=== PATIENT | female | born 1940 | race Caucasian/White ===

== ENCOUNTER 2019-04-13 22:26 | Emergency (ER) | payer OTHER ==
[2019-04-13 23:09] VITALS: PULSE 18; TEMP 98; BMI 24.7
--- NOTE | 2019-04-13 23:31 | PDOC ---
History of Present Illness - General Chief Complaint: Shortness of Breath Stated Complaint: DIFF BREATHING - History of Present Illness Initial Comments: The pt is a 78F w/ a history of HTN, HLD, and cataracts who presents for evaluation of 2 days of body achy and 1 day of shortness of breath. The pt reports that she has been dancing more the last few days and has had body aches. She reports sudden onset shortness of breath while brushing her teeth two hours prior to arrival. She states that it has since improved/almost resolved. She has had similar symptoms before, but not this bad. She endorses 2 sick contacts (kids) She denies fevers/chills, chest pain, abdominal pain, N/V/C/D, dysuria, hematuria, or changes in sensation. 04/14/19 00:51 Past History - Past Medical History Allergies/Adverse Reactions: Allergies Allergy/AdvReac Type Severity Reaction Status Date / Time No Known Allergies Allergy Verified 02/11/16 16:54 Home Medications: Ambulatory Orders Atorvastatin Ca [Lipitor] 20 mg PO DAILY 02/11/16 Bimatoprost [Lumigan] 1 drop IO DAILY 02/11/16 Brimonidine Tartrate [Alphagan P 0.1% -] 1 drop OU BID 02/11/16 Timolol 0.5% [Timoptic 0.5%] 1 drop OU DAILY 02/11/16 Atorvastatin Ca [Lipitor] 20 mg PO DAILY tablet 02/14/16 Brimonidine Tartrate [Alphagan P 0.1% -] 1 drop OU BID drops 02/14/16 Dorzolamide HCl [Trusopt 2% -] 1 drop OU BID drops 02/14/16 Anemia: No Asthma: No Cancer: No Cardiac Disorders: No COPD: No CHF: No Diabetes: Yes HTN: Yes - Psycho Social/Smoking Cessation Hx Smoking History: Never smoked Have you smoked in the past 12 months: No Information on smoking cessation initiated: No Hx Alcohol Use: No Drug/Substance Use Hx: No Substance Use Type: None Review of Systems - Review of Systems Able to Perform ROS?: Yes Comments:: GENERAL/CONSTITUTIONAL: No fever or chills. No weakness HEAD, EYES, EARS, NOSE AND THROAT: No change in vision. No change in hearing. No sore throat CARDIOVASCULAR: No chest pain RESPIRATORY: Denies cough, hemoptysis GASTROINTESTINAL: No nausea, vomiting, diarrhea or constipation GENITOURINARY: No dysuria, frequency, or change in urination MUSCULOSKELETAL: +generalized myalgias SKIN: No rash NEUROLOGIC: No headache, vertigo, loss of consciousness, or change in strength/ sensation ENDOCRINE: No increased thirst. No abnormal weight change HEMATOLOGIC/LYMPHATIC: No anemia, easy bleeding, or history of blood clots ALLERGIC/IMMUNOLOGIC: No hives or skin allergy 04/13/19 23:31 Is the patient limited Tongan proficient: No *Physical Exam - Vital Signs Last Vital Signs Temp Pulse Resp BP Pulse Ox 98 F 18 L 75 H 191/85 H 100 04/13/19 23:06 04/13/19 23:06 04/13/19 23:06 04/13/19 23:06 04/13/19 23:06 - Physical Exam GENERAL: Awake, alert, and oriented to person/place/time, in no acute distress HEAD: No signs of trauma, normocephalic, atraumatic EYES: PERRLA, EOMI, sclera anicteric, conjunctiva clear ENT: Hearing grossly normal, nares patent, oropharynx clear without exudates. Moist mucosa LUNGS: No distress, speaks in full sentences, clear to auscultation bilaterally HEART: Regular rate and rhythm, normal S1 and S2, no murmurs appreciated, peripheral pulses normal and equal bilaterally ABDOMEN: Soft, nontender, normoactive bowel sounds. No guarding, no rebound EXTREMITIES: Normal inspection, Normal range of motion, no edema. No clubbing or cyanosis NEUROLOGICAL: Cranial nerves II through XII grossly intact. Normal speech, no focal sensorimotor deficits SKIN: Warm, Dry 04/13/19 23:31 ED Treatment Course - LABORATORY CBC & Chemistry Diagram: 04/14/19 00:50 04/14/19 00:50 Medical Decision Making - Medical Decision Making The pt is a 78F w/ a history of HTN, HLD, and cataracts who presents for evaluation of 2 days of body achy and 1 day of shortness of breath. Ddx: influenza, MSK pain, PNA, consider ACS/rib fx ED Course Labs sent ECG CXR Influenza neg CXR interpreted by ED staff, no rib fx, PNA, or PNX No leukocytosis No anemia 04/14/19 01:12 ECG w/ NSR; HR 94; QTc 452; no axis deviation; no TWI, no DENNIS Trop I neg UA pending Dispo pending UA 04/14/19 01:51 UA/Ucx sent 04/14/19 02:00 Pt signed out to Dr[address] Cabrera 04/14/19 02:04 Discharge - Discharge Information Problems reviewed: Yes Clinical Impression/Diagnosis: Musculoskeletal pain Condition: Improved - Admission No - Follow up/Referral Referrals: Kadeem Dudley MD [Primary Care Provider] - - Patient Discharge Instructions Patient Printed Discharge Instructions: DI for Musculoskeletal Pain Additional Instructions: You were seen in the Emergency Department for evaluation of musculoskeletal pain. Your labs and imaging were unremarkable. Review the handout provided at discharge. Follow up with your primary care physician within the next week For pain you may take Tylenol 650mg every 6 hours and Ibuprofen 600mg every 6-8 hours, alternating them each time. Return to the Emergency Department if you develop fevers, chest pain, trouble breathing, worsening pain, change in sensation, worsening symptoms, or any new/ concerning symptoms. - Post Discharge Activity
[2019-04-14] MEDS ORDERED: ACETAMINOPHEN 325 MG TABLET (FP) PO ONE (00:10)
--- NOTE | 2019-04-14 00:18 | PDOC ---
Documentation entered by Kaleigh Mcpherson SCRIBE, acting as scribe for Huong Higgins DO. Huong Higgins DO: This documentation has been prepared by the amariibmary, Kaleigh Mcpherson SCRIBE, under my direction and personally reviewed by me in its entirety. I confirm that the documentation accurately reflects all work, treatment, procedures, and medical decision making performed by me. Attending Attestation - Resident Resident Name: Dakotah Tran - ED Attending Attestation I have performed the following: I have examined & evaluated the patient, The case was reviewed & discussed with the resident, I agree w/resident's findings & plan, Exceptions are as noted - HPI HPI: 04/14/19 00:26 The patient is a 75 year old female, with a significant past medical history of HTN, hypercholesterolemia, glaucoma, and cataracts, who presents to the emergency department via EMS, with SOB. Pt also complains of body aches due to dancing recently. As per patient, her symptoms have since resolved prior to arriving to the ED. She denies recent fevers, chills, headache or dizziness. She denies recent nausea, vomiting, diarrhea or constipation. She denies recent dysuria, frequency, urgency or hematuria. She denies recent chest pain. - Physicial Exam PE: 04/14/19 00:18 Gen: aaox3, uncomfortable heart: +s1s2 reg lungs: cta b/l, diffuse chest wall ttp, no deformities palpated abd: soft, nt/nd +bs ext: no c/c/e - Medical Decision Making 04/14/19 00:16 I, Dr. Huong Higgins DO, attest that this document has been prepared under my direction and personally reviewed by me in its entirety. I further attest, that it accurately reflects all work, treatment, procedures and medical decision -making performed by me. a/p: 78yo female with sob earlier today which has since resolved -states her whole body is sore from dancing more recently -pt denies cough, f/c, rhinorrhea, sore throat -no abd pain, no n/v/d -no dysuria -pt with diffuse ttp over ribs, paraspinal muscles, anterior chest wall -will send labs, ekg, cxr -will give tylenol for pain -will monitor and reassess 04/14/19 00:49 flu neg 04/14/19 01:12 cxr clear no elevated wbc 04/14/19 02:05 pt pending ua feels better after tylenol states she has been salsa dancing recently and her body feels sore 04/14/19 02:05 pt signed out to the ED night staff pending ua and re-eval Heart Score/ECG Review - ECG Intrepretation Comment:: 04/14/19 01:12 sinus at 94, nl axis, nl interval, no acute st/t wave findings
[2019-04-14] MEDS ORDERED: ACETAMINOPHEN 325 MG TABLET (FP) ONE (00:47)
[2019-04-14 00:57] LABS: BASO % 0.4 % (0-2.0); EOS % 2.1 % (0-4.5); HEMATOCRIT 44.1 % (32.4-45.2); HEMOGLOBIN 14.6 GM/dL (10.7-15.3); LYMPH % 24.3 % (8-40); MCHC 33.1 g/dl (32.0-36.0); MEAN CELL VOLUME 96.8 fl (80-96); MEAN PLT VOLUME 11.5 fl (7.5-11.1); MONO % 8.7 % (3.8-10.2); NEUT % 64.5 % (42.8-82.8); PLATELET COUNT 209 K/MM3 (134-434); RBC 4.56 M/mm3 (3.60-5.2); RDW 13.5 % (11.6-15.6); WHITE BLOOD COUNT 8.9 K/mm3 (4.0-10.0)
[2019-04-14 01:34] LABS: ALBUMIN 3.9 g/dl (3.4-5.0); BILIRUBIN,TOTAL 0.3 mg/dL (0.2-1); BLOOD UREA NITROGEN 17.4 mg/dL (7-18); CALCIUM 9.6 mg/dL (8.5-10.1); CREATININE 0.8 mg/dL (0.55-1.3); POTASSIUM 4.8 mmol/L (3.5-5.1)
[2019-04-14 02:05] LABS: PH,URINE 5.5 (5.0-8.0); URINE APPEARANCE CLEAR; URINE BILIRUBIN NEGATIVE (NEGATIVE); URINE COLOR YELLOW; URINE GLUCOSE (UA) NEGATIVE (NEGATIVE); URINE KETONE NEGATIVE (NEGATIVE); URINE LEUK ESTERASE NEGATIVE (NEGATIVE); URINE NITRITE NEGATIVE (NEGATIVE); URINE PROTEIN NEGATIVE (NEGATIVE); URINE UROBILINOGEN 0.2 mg/dL (0.2-1.0)
--- NOTE | 2019-04-14 02:26 | PDOC ---
*Physical Exam - Vital Signs Last Vital Signs Temp Pulse Resp BP Pulse Ox 98 F 18 L 75 H 158/71 100 04/13/19 23:06 04/13/19 23:06 04/13/19 23:06 04/14/19 00:55 04/13/19 23:06 ED Treatment Course - LABORATORY CBC & Chemistry Diagram: 04/14/19 00:50 04/14/19 00:50 - ADDITIONAL ORDERS Additional order review: Laboratory Results 04/14/19 04/14/19 04/14/19 02:00 00:50 00:50 Sodium 141 Potassium 4.8 Chloride 105 Carbon Dioxide 30 Anion Gap 6 L BUN 17.4 Creatinine 0.8 Est GFR (CKD-EPI)AfAm 83.00 Est GFR (CKD-EPI)NonAf 71.61 Random Glucose 130 H Calcium 9.6 Total Bilirubin 0.3 AST 36 ALT 28 Alkaline Phosphatase 113 Troponin I < 0.02 Total Protein 9.0 H Albumin 3.9 Urine Color Yellow Urine Appearance Clear Urine pH 5.5 Ur Specific [place] 1.010 Urine Protein Negative Urine Glucose (UA) Negative Urine Ketones Negative Urine Blood Negative Urine Nitrite Negative Urine Bilirubin Negative Urine Urobilinogen 0.2 Ur Leukocyte Esterase Negative 04/14/19 00:50 RBC 4.56 MCV 96.8 H MCHC 33.1 RDW 13.5 MPV 11.5 H D Neutrophils % 64.5 Lymphocytes % 24.3 D Monocytes % 8.7 Eosinophils % 2.1 Basophils % 0.4 - Medications Given in the ED: ED Medications Discontinued Medications Generic Name Dose Route Start Last Admin Trade Name Freq PRN Reason Stop Dose Admin Acetaminophen 975 mg 04/14/19 00:10 04/14/19 00:53 Tylenol - PO 04/14/19 00:11 975 mg ONCE ONE Administration Medical Decision Making - Medical Decision Making 04/14/19 02:24 Signed out from day team The pt is a 78F w/ a history of HTN, HLD, and cataracts who presents for evaluation of 2 days of body achy and 1 day of shortness of breath. Ddx: influenza, MSK pain, PNA, consider ACS/rib fx labs unremarkable will followup on UA 04/14/19 02:25 Ua unremarkable will DC home with pcp f/u Discharge - Discharge Information Problems reviewed: Yes Clinical Impression/Diagnosis: Musculoskeletal pain Condition: Improved Disposition: HOME - Follow up/Referral Referrals: Kadeem Dudley MD [Primary Care Provider] - - Patient Discharge Instructions Patient Printed Discharge Instructions: DI for Musculoskeletal Pain Additional Instructions: You were seen in the Emergency Department for evaluation of musculoskeletal pain. Your labs and imaging were unremarkable. Review the handout provided at discharge. Follow up with your primary care physician within the next week For pain you may take Tylenol 650mg every 6 hours and Ibuprofen 600mg every 6-8 hours, alternating them each time. Return to the Emergency Department if you develop fevers, chest pain, trouble breathing, worsening pain, change in sensation, worsening symptoms, or any new/ concerning symptoms. - Post Discharge Activity
[2019-04-14 02:42] VITALS: BP 116/54
--- NOTE | 2019-04-14 13:57 | EKG ---
Test Reason : Blood Pressure : / mmHG Vent. Rate : 094 BPM Atrial Rate : 094 BPM P-R Int : 152 ms QRS Dur : 082 ms QT Int : 362 ms P-R-T Axes : 068 064 078 degrees QTc Int : 452 ms NORMAL SINUS RHYTHM NORMAL ECG WHEN COMPARED WITH ECG OF 12-FEB-2016 09:23, NO SIGNIFICANT CHANGE WAS FOUND Confirmed by EPHRAIM ALLEN MD ([id number]) on 04/14/2019 1:57:01 PM Referred By: Confirmed By:EPHRAIM ALLEN MD
== END 2019-04-14 02:42 | disposition home or self-care (01) ==
LOC: JER 22:26
DX: M79.18 Myalgia, other site (principal); I10 Essential (primary) hypertension; E78.5 Hyperlipidemia, unspecified; H40.9 Unspecified glaucoma
CPT/HCPCS: 36415; 71046-TC-FY; 80053; 81003; 84484; 85025; 87086; 87804; 93005; 93010; 99283-25

== ENCOUNTER 2020-10-06 15:35 | Emergency (ER) | payer OTHER ==
[2020-10-06 15:54] VITALS: TEMP 98.9; BMI 23.0
[2020-10-06] MEDS ORDERED: FLUORESCEIN NA 1 EA STRIP ONE (16:46)
[2020-10-06 17:12] VITALS: BP 160/80; PULSE 90
== END 2020-10-06 17:42 | disposition home or self-care (01) ==
LOC: JERFT 15:35
DX: B02.9 Zoster without complications (principal)
CPT/HCPCS: 99283-25

== ENCOUNTER 2020-10-08 10:37 | Emergency (ER) | payer OTHER ==
[2020-10-08 10:46] VITALS: BMI 23.0
[2020-10-08] MEDS ORDERED: predniSONE 20 MG TABLET (UD) PO ONE (12:09)
[2020-10-08] MEDS ORDERED: ACYCLOVIR INJECTION 600 MG in DEXTROSE 5%-WATER - 100 ML IVPB ONE (12:10)
[2020-10-08] MEDS ORDERED: predniSONE 20 MG TABLET (UD) ONE (12:33)
[2020-10-08 13:20] LABS: BASO % 0.5 % (0-2.0); EOS % 2.8 % (0-4.5); HEMATOCRIT 45.9 % (32.4-45.2); HEMOGLOBIN 15.1 GM/dL (10.7-15.3); LYMPH % 31.7 % (8-40); MCH 31.7 pg (25.7-33.7); MEAN PLT VOLUME 11.2 fl (7.5-11.1); MONO % 19.5 % (3.8-10.2); NEUT % 45.5 % (42.8-82.8); PLATELET COUNT 164 10^3/uL (134-434); RBC 4.78 M/mm3 (3.60-5.2); RDW 13.2 % (11.6-15.6)
[2020-10-08 13:45] LABS: ALBUMIN 3.8 g/dl (3.4-5.0)
[2020-10-08 13:46] LABS: BLOOD UREA NITROGEN 10.9 mg/dL (7-18)
[2020-10-08 13:47] LABS: CALCIUM 9.6 mg/dL (8.5-10.1)
[2020-10-08 13:49] LABS: CREATININE 0.6 mg/dL (0.55-1.3)
[2020-10-08 13:50] LABS: BILIRUBIN,TOTAL 0.2 mg/dL (0.2-1); TOT PROT 8.8 g/dl (6.4-8.2)
[2020-10-08] MEDS ORDERED: amLODIPine BESYLATE 5 MG TABLET (FP) PO ONE (14:22)
[2020-10-08] MEDS ORDERED: amLODIPine BESYLATE 5 MG TABLET (FP) ONE (14:23)
[2020-10-08 15:07] VITALS: BP 164/70; PULSE 88; TEMP 98.1
== END 2020-10-08 15:04 | disposition home or self-care (01) ==
LOC: JER 10:37
DX: B02.39 Other herpes zoster eye disease (principal)
CPT/HCPCS: 36415; 80053; 85025; 99284-25

== ENCOUNTER 2020-12-18 18:08 | Observation (INO) | payer OTHER ==
[2020-12-18] MEDS ORDERED: ASPIRIN 81 MG CHEWABLE TABLETS PO ONE (20:46)
[2020-12-18] MEDS ORDERED: NITROGLYCERIN 2% OINTMENT - 1GM PACKET TD ONE ×2 (20:47→20:56)
[2020-12-18] MEDS ORDERED: ASPIRIN 81 MG CHEWABLE TABLETS ONE (20:56)
[2020-12-18 21:11] LABS: BASO % 0.3 % (0-2.0); EOS % 3.6 % (0-4.5); HEMATOCRIT 46.3 % (32.4-45.2); HEMOGLOBIN 15.8 GM/dL (10.7-15.3); LYMPH % 32.5 % (8-40); MCH 32.7 pg (25.7-33.7); MCHC 34.2 g/dl (32.0-36.0); MEAN CELL VOLUME 95.8 fl (80-96); MEAN PLT VOLUME 10.8 fl (7.5-11.1); MONO % 8.7 % (3.8-10.2); NEUT % 54.9 % (42.8-82.8); PLATELET COUNT 199 10^3/uL (134-434); RBC 4.83 M/mm3 (3.60-5.2); RDW 14.1 % (11.6-15.6); WHITE BLOOD COUNT 8.9 K/mm3 (4.0-10.0)
[2020-12-18 21:44] LABS: CHLORIDE 103 mmol/L (98-107); SODIUM 140 mmol/L (136-145)
[2020-12-18 21:46] LABS: CALCIUM 9.8 mg/dL (8.5-10.1)
[2020-12-18 21:47] LABS: ANION GAP 6 MMOL/L (8-16); BLOOD UREA NITROGEN 10.5 mg/dL (7-18); CO2 32 mmol/L (21-32); GLUCOSE,RANDOM 100 mg/dL (74-106)
[2020-12-18 21:49] LABS: SGPT/ALT 26 U/L (13-61)
[2020-12-18 21:50] LABS: SGOT/AST 27 U/L (15-37)
[2020-12-18 21:51] LABS: BILIRUBIN,TOTAL 0.3 mg/dL (0.2-1)
[2020-12-18 21:52] LABS: ALK PHOS 124 U/L (45-117); CREATININE 0.6 mg/dL (0.55-1.3); TOT PROT 8.7 g/dl (6.4-8.2)
[2020-12-19 03:19] VITALS: BMI 25.1
[2020-12-19 08:38] LABS: URINE APPEARANCE CLEAR; URINE BILIRUBIN NEGATIVE (NEGATIVE); URINE COLOR YELLOW; URINE GLUCOSE (UA) NEGATIVE (NEGATIVE); URINE KETONE NEGATIVE (NEGATIVE); URINE LEUK ESTERASE NEGATIVE (NEGATIVE); URINE NITRITE NEGATIVE (NEGATIVE); URINE PROTEIN NEGATIVE (NEGATIVE); URINE UROBILINOGEN 0.2 mg/dL (0.2-1.0)
[2020-12-19] MEDS: ENOXAPARIN NA (PORCINE) 40 MG/0.4 ML DISP.SYRIN SQ SCH (11:18)
[2020-12-19] MEDS ORDERED: ATORVASTATIN CA 20 MG TABLET (FP) PO SCH (22:00)
[2020-12-20 07:28] LABS: HEMATOCRIT 41.2 % (32.4-45.2); HEMOGLOBIN 14.1 GM/dL (10.7-15.3); MCH 32.9 pg (25.7-33.7); MCHC 34.3 g/dl (32.0-36.0); MEAN CELL VOLUME 96.1 fl (80-96); MEAN PLT VOLUME 10.9 fl (7.5-11.1); PLATELET COUNT 180 10^3/uL (134-434); RBC 4.29 M/mm3 (3.60-5.2); RDW 13.8 % (11.6-15.6); WHITE BLOOD COUNT 7.2 K/mm3 (4.0-10.0)
[2020-12-20 07:47] LABS: CALCIUM 8.9 mg/dL (8.5-10.1)
[2020-12-20 07:48] LABS: ALBUMIN 3.2 g/dl (3.4-5.0); BLOOD UREA NITROGEN 14.1 mg/dL (7-18); MAGNESIUM 2.3 mg/dL (1.8-2.4)
[2020-12-20 07:51] LABS: BILIRUBIN,TOTAL 0.3 mg/dL (0.2-1); CREATININE 0.7 mg/dL (0.55-1.3); PHOSPHOROUS 3.8 mg/dL (2.5-4.9)
[2020-12-20 07:52] LABS: TOT PROT 7.4 g/dl (6.4-8.2)
[2020-12-20] MEDS: ENOXAPARIN NA (PORCINE) 40 MG/0.4 ML DISP.SYRIN SQ SCH (09:46)
[2020-12-20] MEDS ORDERED: ASPIRIN COATED 81 MG TABLET.EC PO SCH (10:00)
[2020-12-20 14:58] VITALS: BP 147/93; PULSE 85; TEMP 98.1
== END 2020-12-20 18:36 | disposition home or self-care (01) ==
LOC: JER 18:08 → JERBED 22:17 → UNDOADMOB 22:17 → OBSVTOIN 12-19 01:29 → INTOOBSV 12-19 01:29 → J4W 12-19 02:28 → JERBED 12-19 02:28 → J4W 12-19 12:32
PROVIDERS: ADMIT Internal Medicine
PROC: 3E023GC Introduction of Other Therapeutic Substance into Muscle, Percutaneous Approach (ICD-10-PCS; principal; 2020-12-19)
DX: R07.9 Chest pain, unspecified (principal); E11.9 Type 2 diabetes mellitus without complications; I10 Essential (primary) hypertension; E78.5 Hyperlipidemia, unspecified; H40.9 Unspecified glaucoma; Z98.49 Cataract extraction status, unspecified eye; E78.00 Pure hypercholesterolemia, unspecified; B02.9 Zoster without complications
CPT/HCPCS: 36415; 71046-TC-FY; 73502-TC-LT-FY; 78452-TC; 80053; 80061; 81003; 82550; 83735; 83883; 84100; 84155; 84156; 84157; 84165; 84443; 84484; 85025; 85027; 85379; 93005; 93010; 93017; 93306-TC; 96372; 99285-25; A9502; C9803; G0378; U0003; U0005

== ENCOUNTER 2021-09-27 17:38 | Inpatient (IN) | payer OTHER ==
[2021-09-27 18:03] VITALS: BMI 28.8
[2021-09-27 18:42] LABS: BASO % 0.3 % (0-2.0); EOS % 2.8 % (0-4.5); HEMATOCRIT 45.4 % (32.4-45.2); HEMOGLOBIN 15.2 GM/dL (10.7-15.3); LYMPH % 31.2 % (8-40); MCH 31.7 pg (25.7-33.7); MCHC 33.4 g/dl (32.0-36.0); MEAN PLT VOLUME 10.1 fl (7.5-11.1); MONO % 7.7 % (3.8-10.2); PLATELET COUNT 207 10^3/uL (134-434); RBC 4.78 M/mm3 (3.60-5.2); RDW 13.2 % (11.6-15.6); WHITE BLOOD COUNT 7.2 K/mm3 (4.0-10.0)
[2021-09-27] MEDS ORDERED: ACETAMINOPHEN 500 MG TABLET (FP) PO ONE (18:42)
[2021-09-27] MEDS ORDERED: ACETAMINOPHEN 325 MG TABLET (FP) ONE (18:52)
[2021-09-27 19:02] LABS: CALCIUM 9.7 mg/dL (8.5-10.1)
[2021-09-27 19:03] LABS: ALBUMIN 3.9 g/dl (3.4-5.0)
[2021-09-27 19:06] LABS: CREATININE 0.8 mg/dL (0.55-1.3)
[2021-09-27 19:08] LABS: BILIRUBIN,TOTAL 0.2 mg/dL (0.2-1); TOT PROT 9.2 g/dl (6.4-8.2)
[2021-09-27] MEDS ORDERED: ACETAMINOPHEN 325 MG TABLET (FP) PO PRN (21:04)
[2021-09-28] MEDS ORDERED: ACETAMINOPHEN 325 MG TABLET (FP) ONE (06:32)
[2021-09-28 07:55] LABS: HEMATOCRIT 43.6 % (32.4-45.2); HEMOGLOBIN 14.4 GM/dL (10.7-15.3); MCH 31.9 pg (25.7-33.7); MEAN CELL VOLUME 96.7 fl (80-96); PLATELET COUNT 189 10^3/uL (134-434); RBC 4.51 M/mm3 (3.60-5.2); RDW 13.5 % (11.6-15.6); WHITE BLOOD COUNT 6.7 K/mm3 (4.0-10.0)
[2021-09-28 08:15] LABS: ALBUMIN 3.4 g/dl (3.4-5.0); BLOOD UREA NITROGEN 9.7 mg/dL (7-18); CALCIUM 9.3 mg/dL (8.5-10.1); MAGNESIUM 2.2 mg/dL (1.8-2.4)
[2021-09-28 08:18] LABS: CREATININE 0.7 mg/dL (0.55-1.3); PHOSPHOROUS 3.4 mg/dL (2.5-4.9)
[2021-09-28 08:20] LABS: BILIRUBIN,TOTAL 0.3 mg/dL (0.2-1)
[2021-09-28] MEDS ORDERED: ASPIRIN COATED 81 MG TABLET.EC ONE (09:51)
[2021-09-28] MEDS ORDERED: ENOXAPARIN NA (PORCINE) 40 MG/0.4 ML DISP.SYRIN SQ ONE (09:51)
[2021-09-28] MEDS ORDERED: amLODIPine BESYLATE 2.5 MG TABLET (FP) ONE (09:51)
[2021-09-28] MEDS: ASPIRIN COATED 81 MG TABLET.EC PO SCH (10:03)
[2021-09-28] MEDS: amLODIPine BESYLATE 5 MG TABLET (FP) PO SCH (10:03)
[2021-09-28] MEDS: ENOXAPARIN NA (PORCINE) 40 MG/0.4 ML DISP.SYRIN SQ SCH (10:03)
[2021-09-28] MEDS: TIMOLOL 0.5% OPHTHALMIC SOL 5 ML BOTTLE OD SCH ×2 (10:30→21:59)
[2021-09-28] MEDS: DORZOLAMIDE 2% HCL OPHTHALMIC SOLUTION 10 ML BOTTLE OD SCH ×2 (10:30→22:00)
[2021-09-28 10:31] LABS: ANISOCYTOSIS 0; HELMET CELLS 0; HOWELL-JOLLY BODIES 0; MACROCYTOSIS 0; OVALOCYTE 0; ROULEAU 0; SICKELED CELLS 0; TARGET CELLS 0; TEAR DROP CELLS 0; TOXIC GRANULATION 0
[2021-09-28] MEDS ORDERED: PATIENT'S OWN MEDICATION (NON-FORMULARY) (Dorzolamide Hcl/Timolol Maleat [Cosopt Eye Drops OD SCH ×2 (11:30)
[2021-09-28] MEDS ORDERED: TIMOLOL 0.5% OPHTHALMIC SOL 5 ML BOTTLE OD SCH (11:45)
[2021-09-28] MEDS ORDERED: BRIMONIDINE TARTRATE 0.2% OPHTHALMIC 5 ML BOTTLE OD SCH (11:45)
[2021-09-28] MEDS: BRIMONIDINE TARTRATE 0.2% OPHTHALMIC 5 ML BOTTLE OU SCH ×2 (14:47→21:59)
[2021-09-28] MEDS ORDERED: AZITHROMYCIN 250 MG TABLET PO ONE (22:10)
[2021-09-28] MEDS ORDERED: CEFTRIAXONE 1 GM in DEXTROSE 5%-WATER - 50 ML IVPB ONE (22:30)
[2021-09-28] MEDS ORDERED: cefTRIAXone SODIUM 1 GM VIAL ONE (23:25)
[2021-09-28] MEDS ORDERED: DEXTROSE 5%-WATER - 50 ML IVPB ONE (23:26)
[2021-09-29] MEDS ORDERED: cefTRIAXone SODIUM 1 GM VIAL ONE (09:57)
[2021-09-29] MEDS ORDERED: DEXTROSE 5%-WATER - 50 ML IVPB ONE (09:57)
[2021-09-29] MEDS: CEFTRIAXONE 1 GM in DEXTROSE 5%-WATER - 50 ML IVPB SCH (10:50)
[2021-09-29] MEDS: amLODIPine BESYLATE 5 MG TABLET (FP) PO SCH (10:51)
[2021-09-29] MEDS: AZITHROMYCIN 250 MG TABLET PO SCH (10:51)
[2021-09-29] MEDS: ASPIRIN COATED 81 MG TABLET.EC PO SCH (10:52)
[2021-09-29] MEDS: ENOXAPARIN NA (PORCINE) 40 MG/0.4 ML DISP.SYRIN SQ SCH (10:52)
[2021-09-29] MEDS: DORZOLAMIDE 2% HCL OPHTHALMIC SOLUTION 10 ML BOTTLE OD SCH ×2 (10:52→21:43)
[2021-09-29] MEDS: BRIMONIDINE TARTRATE 0.2% OPHTHALMIC 5 ML BOTTLE OU SCH ×2 (10:53→21:39)
[2021-09-29] MEDS: TIMOLOL 0.5% OPHTHALMIC SOL 5 ML BOTTLE OD SCH ×2 (10:53→21:40)
[2021-09-29] MEDS ORDERED: FUROSEMIDE 40 MG/4 ML INJECTABLE VIAL IVPUSH SCH (13:30)
[2021-09-30 06:48] LABS: BASO % 0.3 % (0-2.0); EOS % 4.4 % (0-4.5); HEMATOCRIT 42.6 % (32.4-45.2); HEMOGLOBIN 14.4 GM/dL (10.7-15.3); LYMPH % 32.9 % (8-40); MCH 32.4 pg (25.7-33.7); MCHC 33.8 g/dl (32.0-36.0); MEAN CELL VOLUME 95.9 fl (80-96); MEAN PLT VOLUME 10.1 fl (7.5-11.1); MONO % 9.7 % (3.8-10.2); NEUT % 52.7 % (42.8-82.8); PLATELET COUNT 178 10^3/uL (134-434); RBC 4.45 M/mm3 (3.60-5.2); RDW 13.3 % (11.6-15.6); WHITE BLOOD COUNT 5.6 K/mm3 (4.0-10.0)
[2021-09-30 07:12] LABS: ALBUMIN 3.4 g/dl (3.4-5.0); BLOOD UREA NITROGEN 15.4 mg/dL (7-18); CALCIUM 9.5 mg/dL (8.5-10.1)
[2021-09-30 07:15] LABS: CREATININE 0.7 mg/dL (0.55-1.3)
[2021-09-30 07:16] LABS: BILIRUBIN,TOTAL 0.5 mg/dL (0.2-1); TOT PROT 7.6 g/dl (6.4-8.2)
[2021-09-30] MEDS: ENOXAPARIN NA (PORCINE) 40 MG/0.4 ML DISP.SYRIN SQ SCH (10:23)
[2021-09-30] MEDS: amLODIPine BESYLATE 5 MG TABLET (FP) PO SCH (10:23)
[2021-09-30] MEDS: AZITHROMYCIN 250 MG TABLET PO SCH (10:23)
[2021-09-30] MEDS: ASPIRIN COATED 81 MG TABLET.EC PO SCH (10:23)
[2021-09-30] MEDS: TIMOLOL 0.5% OPHTHALMIC SOL 5 ML BOTTLE OD SCH ×2 (10:29→21:21)
[2021-09-30] MEDS: DORZOLAMIDE 2% HCL OPHTHALMIC SOLUTION 10 ML BOTTLE OD SCH ×2 (10:29→21:20)
[2021-09-30] MEDS: BRIMONIDINE TARTRATE 0.2% OPHTHALMIC 5 ML BOTTLE OU SCH ×2 (10:29→21:23)
[2021-09-30] MEDS ORDERED: cefTRIAXone SODIUM 1 GM VIAL ONE (12:48)
[2021-09-30] MEDS ORDERED: DEXTROSE 5%-WATER - 50 ML IVPB ONE (12:48)
[2021-09-30] MEDS: CEFTRIAXONE 1 GM in DEXTROSE 5%-WATER - 50 ML IVPB SCH (13:08)
[2021-10-01] MEDS: CIPROFLOXACIN HCL 0.3% OPHTH 2.5ML BOTTLE OU SCH ×6 (00:02→22:01)
[2021-10-01] MEDS ORDERED: cefTRIAXone SODIUM 1 GM VIAL ONE (09:14)
[2021-10-01] MEDS ORDERED: DEXTROSE 5%-WATER - 50 ML IVPB ONE (09:14)
[2021-10-01] MEDS: ENOXAPARIN NA (PORCINE) 40 MG/0.4 ML DISP.SYRIN SQ SCH (09:31)
[2021-10-01] MEDS: amLODIPine BESYLATE 5 MG TABLET (FP) PO SCH (09:32)
[2021-10-01] MEDS: AZITHROMYCIN 250 MG TABLET PO SCH (09:34)
[2021-10-01] MEDS: ASPIRIN COATED 81 MG TABLET.EC PO SCH (09:35)
[2021-10-01] MEDS: DORZOLAMIDE 2% HCL OPHTHALMIC SOLUTION 10 ML BOTTLE OD SCH ×2 (09:36→22:00)
[2021-10-01] MEDS: TIMOLOL 0.5% OPHTHALMIC SOL 5 ML BOTTLE OD SCH ×2 (09:37→22:00)
[2021-10-01] MEDS: BRIMONIDINE TARTRATE 0.2% OPHTHALMIC 5 ML BOTTLE OU SCH ×2 (09:37→21:59)
[2021-10-01] MEDS: CEFTRIAXONE 1 GM in DEXTROSE 5%-WATER - 50 ML IVPB SCH (09:46)
[2021-10-02] MEDS: CIPROFLOXACIN HCL 0.3% OPHTH 2.5ML BOTTLE OU SCH (05:56)
[2021-10-02] MEDS ORDERED: ACETAMINOPHEN 325 MG TABLET (FP) PO PRN (07:51)
[2021-10-02 08:58] LABS: BASO % 0.4 % (0-2.0); EOS % 4.2 % (0-4.5); HEMATOCRIT 40.5 % (32.4-45.2); HEMOGLOBIN 13.4 GM/dL (10.7-15.3); LYMPH % 32.4 % (8-40); MCH 31.8 pg (25.7-33.7); MCHC 33.1 g/dl (32.0-36.0); MEAN CELL VOLUME 96.1 fl (80-96); MEAN PLT VOLUME 10.9 fl (7.5-11.1); MONO % 8.9 % (3.8-10.2); NEUT % 54.1 % (42.8-82.8); PLATELET COUNT 187 10^3/uL (134-434); RBC 4.21 M/mm3 (3.60-5.2); RDW 13.2 % (11.6-15.6); WHITE BLOOD COUNT 5.8 K/mm3 (4.0-10.0)
[2021-10-02 09:10] LABS: CALCIUM 9.4 mg/dL (8.5-10.1)
[2021-10-02 09:11] LABS: ALBUMIN 3.3 g/dl (3.4-5.0); BLOOD UREA NITROGEN 12.7 mg/dL (7-18)
[2021-10-02 09:14] LABS: CREATININE 0.6 mg/dL (0.55-1.3)
[2021-10-02 09:16] LABS: BILIRUBIN,TOTAL 0.7 mg/dL (0.2-1); TOT PROT 7.6 g/dl (6.4-8.2)
[2021-10-02] MEDS ORDERED: DEXTROSE 5%-WATER - 50 ML IVPB ONE (09:37)
[2021-10-02] MEDS ORDERED: cefTRIAXone SODIUM 1 GM VIAL ONE (09:37)
[2021-10-02] MEDS: ASPIRIN COATED 81 MG TABLET.EC PO SCH (09:44)
[2021-10-02] MEDS: CEFTRIAXONE 1 GM in DEXTROSE 5%-WATER - 50 ML IVPB SCH (09:45)
[2021-10-02] MEDS: AZITHROMYCIN 250 MG TABLET PO SCH (09:45)
[2021-10-02] MEDS: amLODIPine BESYLATE 2.5 MG TABLET (FP) PO SCH (09:45)
[2021-10-02] MEDS: DORZOLAMIDE 2% HCL OPHTHALMIC SOLUTION 10 ML BOTTLE OD SCH ×2 (09:47→22:49)
[2021-10-02] MEDS: TIMOLOL 0.5% OPHTHALMIC SOL 5 ML BOTTLE OD SCH ×2 (09:47→22:48)
[2021-10-02] MEDS: BRIMONIDINE TARTRATE 0.2% OPHTHALMIC 5 ML BOTTLE OU SCH ×2 (09:48→22:48)
[2021-10-02] MEDS: ENOXAPARIN NA (PORCINE) 40 MG/0.4 ML DISP.SYRIN SQ SCH (09:49)
[2021-10-02] MEDS ORDERED: ALBUTEROL SO4 0.083% IH SOL 2.5 MG/3 ML VIAL.NEB. NEB PRN (10:25)
[2021-10-03 07:04] VITALS: BP 137/69; PULSE 83; TEMP 98.7
[2021-10-03 09:18] LABS: BASO % 0.4 % (0-2.0); EOS % 3.4 % (0-4.5); HEMATOCRIT 41.1 % (32.4-45.2); HEMOGLOBIN 13.6 GM/dL (10.7-15.3); MCH 31.9 pg (25.7-33.7); MCHC 33.2 g/dl (32.0-36.0); MEAN CELL VOLUME 95.9 fl (80-96); MONO % 7.6 % (3.8-10.2); NEUT % 58.6 % (42.8-82.8); PLATELET COUNT 191 10^3/uL (134-434); RBC 4.28 M/mm3 (3.60-5.2); RDW 13.4 % (11.6-15.6); WHITE BLOOD COUNT 6.8 K/mm3 (4.0-10.0)
[2021-10-03 09:32] LABS: CALCIUM 9.3 mg/dL (8.5-10.1)
[2021-10-03 09:33] LABS: ALBUMIN 3.3 g/dl (3.4-5.0); BLOOD UREA NITROGEN 13.2 mg/dL (7-18)
[2021-10-03 09:36] LABS: CREATININE 0.7 mg/dL (0.55-1.3)
[2021-10-03 09:38] LABS: BILIRUBIN,TOTAL 0.3 mg/dL (0.2-1); TOT PROT 7.8 g/dl (6.4-8.2)
[2021-10-03] MEDS ORDERED: REGADENOSON 0.4 MG/5 ML PRE-FILLED SYRINGE IVPUSH ONE ×2 (10:02→10:15)
[2021-10-03] MEDS ORDERED: DEXTROSE 5%-WATER - 50 ML IVPB ONE (15:20)
[2021-10-03] MEDS ORDERED: cefTRIAXone SODIUM 1 GM VIAL ONE (15:20)
[2021-10-03] MEDS: ASPIRIN COATED 81 MG TABLET.EC PO SCH (15:22)
[2021-10-03] MEDS: AZITHROMYCIN 250 MG TABLET PO SCH (15:22)
[2021-10-03] MEDS: ENOXAPARIN NA (PORCINE) 40 MG/0.4 ML DISP.SYRIN SQ SCH (15:23)
[2021-10-03] MEDS: CEFTRIAXONE 1 GM in DEXTROSE 5%-WATER - 50 ML IVPB SCH (15:23)
[2021-10-03] MEDS: amLODIPine BESYLATE 2.5 MG TABLET (FP) PO SCH (15:23)
[2021-10-03] MEDS: TIMOLOL 0.5% OPHTHALMIC SOL 5 ML BOTTLE OD SCH (15:26)
[2021-10-03] MEDS: DORZOLAMIDE 2% HCL OPHTHALMIC SOLUTION 10 ML BOTTLE OD SCH (15:28)
[2021-10-03] MEDS: BRIMONIDINE TARTRATE 0.2% OPHTHALMIC 5 ML BOTTLE OU SCH (15:29)
== END 2021-10-03 17:26 | disposition home or self-care (01) | DRG 139 ==
LOC: JER 17:38 → JERBED 19:24 → J4W 09-28 22:27 → J8W 10-01 10:47
PROVIDERS: ADMIT Internal Medicine
DX: J18.9 Pneumonia, unspecified organism (principal); E11.9 Type 2 diabetes mellitus without complications; I10 Essential (primary) hypertension; E78.00 Pure hypercholesterolemia, unspecified; Z86.16 Personal history of COVID-19; H40.9 Unspecified glaucoma; M25.552 Pain in left hip; H26.9 Unspecified cataract
CPT/HCPCS: 0241U-QW; 36415; 71045-TC-FY; 71275-TC; 78452-TC; 80053; 80061; 82962; 83036; 83735; 83880; 84100; 84443; 84484; 85025; 85379; 87899; 93005; 93010; 93017; 93306-TC; 94010; 97116-GP; 97161-GP; 99285-25; A9502; J2785

== ENCOUNTER 2024-04-14 16:28 | Inpatient (IN) | payer OTHER ==
[2024-04-14 17:05] VITALS: BMI 31.2
[2024-04-14] MEDS ORDERED: ACETYLCYSTEINE 20% 200MG/ML 4 ML VIAL *FOR ORAL / INH USE ONLY ONE (18:01)
[2024-04-14] MEDS ORDERED: ALBUTEROL SO4 0.083% IH SOL 2.5 MG/3 ML VIAL.NEB. NEB ONE (18:02)
[2024-04-14] MEDS: ALBUTEROL SO4 0.083% IH SOL 2.5 MG/3 ML VIAL.NEB. NEB ONE (18:07)
[2024-04-14] MEDS: ACETYLCYSTEINE 20% 200MG/ML 30 ML VIAL *FOR ORAL / INH USE ONLY NEB ONE (18:07)
[2024-04-14 22:09] LABS: BASO % 1.5 % (0-2.0); EOS % 4.4 % (0-4.5); HEMATOCRIT 42.2 % (32.4-45.2); HEMOGLOBIN 13.7 GM/dL (10.7-15.3); MCH 31.5 pg (25.7-33.7); MCHC 32.4 g/dl (32.0-36.0); MEAN CELL VOLUME 97.2 fl (80-96); MEAN PLT VOLUME 10.9 fl (7.5-11.1); MONO % 6.5 % (3.8-10.2); NEUT % 56.6 % (42.8-82.8); PLATELET COUNT 182 10^3/uL (134-434); RBC 4.34 M/mm3 (3.60-5.2); RDW 13.9 % (11.6-15.6); WHITE BLOOD COUNT 6.4 K/mm3 (4.0-10.0)
[2024-04-14 22:25] LABS: POTASSIUM 4.5 mmol/L (3.5-5.1)
[2024-04-14 22:28] LABS: ALBUMIN 3.1 g/dl (3.4-5.0); BLOOD UREA NITROGEN 13.4 mg/dL (7-18)
[2024-04-14 22:31] LABS: CREATININE 0.9 mg/dL (0.55-1.3)
[2024-04-14 22:32] LABS: TOT PROT 7.4 g/dl (6.4-8.2)
[2024-04-14 22:36] LABS: N-TERMINAL BNP 88.6 pg/ml (5-450)
[2024-04-14 23:02] LABS: BILIRUBIN,TOTAL 0.3 mg/dL (0.2-1)
[2024-04-15] MEDS: methylPREDNISolone NA SUCC 40 MG/1 ML VIAL IVPUSH ONE (05:52)
[2024-04-15 07:05] LABS: HEMATOCRIT 40.7 % (32.4-45.2); HEMOGLOBIN 13.4 GM/dL (10.7-15.3); MCH 31.9 pg (25.7-33.7); MEAN CELL VOLUME 96.7 fl (80-96); PLATELET COUNT 175 10^3/uL (134-434); RBC 4.21 M/mm3 (3.60-5.2); RDW 13.9 % (11.6-15.6); WHITE BLOOD COUNT 5.9 K/mm3 (4.0-10.0)
[2024-04-15 07:16] LABS: POTASSIUM 4.2 mmol/L (3.5-5.1)
[2024-04-15 07:23] LABS: CALCIUM 8.9 mg/dL (8.5-10.1)
[2024-04-15 07:24] LABS: ALBUMIN 3.1 g/dl (3.4-5.0); BLOOD UREA NITROGEN 13.2 mg/dL (7-18); MAGNESIUM 2.2 mg/dL (1.8-2.4)
[2024-04-15 07:27] LABS: CREATININE 0.6 mg/dL (0.55-1.3); PHOSPHOROUS 3.9 mg/dL (2.5-4.9)
[2024-04-15 07:28] LABS: BILIRUBIN,TOTAL 0.4 mg/dL (0.2-1); TOT PROT 7.3 g/dl (6.4-8.2)
[2024-04-15] MEDS: ALBUTEROL SO4 2.5/IPRATROPIUM 0.5 INH SOL 3 ML VIAL.NEB. NEB SCH (08:15)
[2024-04-15] MEDS: amLODIPine BESYLATE 2.5 MG TABLET (FP) PO SCH (09:19)
[2024-04-15] MEDS: ENOXAPARIN NA (PORCINE) 40 MG/0.4 ML DISP.SYRIN SQ SCH (09:19)
[2024-04-15] MEDS: INSULIN ASPART SLIDING SCALE (NOVOLOG) 1 VIAL SQ SCH (09:19)
[2024-04-15] MEDS: ASPIRIN COATED 81 MG TABLET.EC PO SCH (09:19)
[2024-04-15] MEDS: DORZOLAMIDE HCL/TIMOLOL OPHTHALMIC SOLUTION 10 ML BOTTLE OD SCH (11:33)
[2024-04-15] MEDS: BRIMONIDINE TARTRATE 0.2% OPHTHALMIC 5 ML BOTTLE OU SCH (11:34)
[2024-04-16 05:46] LABS: URINE APPEARANCE CLEAR; URINE BILIRUBIN NEGATIVE (NEGATIVE); URINE COLOR YELLOW; URINE GLUCOSE (UA) NEGATIVE (NEGATIVE); URINE KETONE NEGATIVE (NEGATIVE); URINE LEUK ESTERASE NEGATIVE (NEGATIVE); URINE NITRITE NEGATIVE (NEGATIVE); URINE PROTEIN NEGATIVE (NEGATIVE); URINE UROBILINOGEN 0.2 mg/dL (0.2-1.0)
[2024-04-16] MEDS: predniSONE 20 MG TABLET (UD) PO SCH (10:38)
[2024-04-16 10:48] LABS: BASO % 0.2 % (0-2.0); EOS % 0.1 % (0-4.5); HEMATOCRIT 40.4 % (32.4-45.2); HEMOGLOBIN 13.7 GM/dL (10.7-15.3); LYMPH % 27.9 % (8-40); MCH 32.4 pg (25.7-33.7); MCHC 33.8 g/dl (32.0-36.0); MEAN CELL VOLUME 95.7 fl (80-96); MEAN PLT VOLUME 10.5 fl (7.5-11.1); MONO % 8.5 % (3.8-10.2); NEUT % 63.3 % (42.8-82.8); PLATELET COUNT 181 10^3/uL (134-434); RBC 4.22 M/mm3 (3.60-5.2); RDW 13.9 % (11.6-15.6); WHITE BLOOD COUNT 8.3 K/mm3 (4.0-10.0)
[2024-04-16 11:05] LABS: POTASSIUM 4.1 mmol/L (3.5-5.1)
[2024-04-16 11:10] LABS: BLOOD UREA NITROGEN 14.1 mg/dL (7-18); CALCIUM 9.2 mg/dL (8.5-10.1); MAGNESIUM 2.2 mg/dL (1.8-2.4)
[2024-04-16 11:13] LABS: CREATININE 0.8 mg/dL (0.55-1.3)
[2024-04-16 11:14] LABS: PHOSPHOROUS 3.1 mg/dL (2.5-4.9)
[2024-04-16 11:15] LABS: BILIRUBIN,TOTAL 0.3 mg/dL (0.2-1); TOT PROT 7.4 g/dl (6.4-8.2)
[2024-04-17 10:35] LABS: BASO % 0.5 % (0-2.0); EOS % 0.1 % (0-4.5); HEMATOCRIT 41.8 % (32.4-45.2); HEMOGLOBIN 13.8 GM/dL (10.7-15.3); LYMPH % 26.7 % (8-40); MCH 31.8 pg (25.7-33.7); MEAN CELL VOLUME 96.2 fl (80-96); MONO % 7.2 % (3.8-10.2); NEUT % 65.5 % (42.8-82.8); PLATELET COUNT 173 10^3/uL (134-434); RBC 4.35 M/mm3 (3.60-5.2); RDW 14.1 % (11.6-15.6); WHITE BLOOD COUNT 8.2 K/mm3 (4.0-10.0)
[2024-04-17 10:57] LABS: POTASSIUM 3.6 mmol/L (3.5-5.1)
[2024-04-17 11:00] LABS: CALCIUM 9.4 mg/dL (8.5-10.1)
[2024-04-17 11:01] LABS: MAGNESIUM 2.1 mg/dL (1.8-2.4)
[2024-04-17 11:04] LABS: CREATININE 0.7 mg/dL (0.55-1.3); PHOSPHOROUS 2.6 mg/dL (2.5-4.9)
[2024-04-17 22:18] VITALS: RESP 18
[2024-04-19 09:43] VITALS: BP 124/59; TEMP 97.7
[2024-04-19 09:44] LABS: HEMATOCRIT 44.7 % (32.4-45.2); HEMOGLOBIN 14.8 GM/dL (10.7-15.3); MCHC 33.2 g/dl (32.0-36.0); MEAN CELL VOLUME 96.3 fl (80-96); MEAN PLT VOLUME 10.8 fl (7.5-11.1); PLATELET COUNT 205 10^3/uL (134-434); RBC 4.64 M/mm3 (3.60-5.2); WHITE BLOOD COUNT 9.5 K/mm3 (4.0-10.0)
[2024-04-19 10:02] LABS: POTASSIUM 3.8 mmol/L (3.5-5.1)
[2024-04-19 10:16] LABS: ALBUMIN 3.4 g/dl (3.4-5.0)
[2024-04-19 10:17] LABS: BILIRUBIN,TOTAL 0.3 mg/dL (0.2-1)
[2024-04-19 10:18] LABS: TOT PROT 8.2 g/dl (6.4-8.2)
[2024-04-19 10:21] LABS: BLOOD UREA NITROGEN 14.8 mg/dL (7-18)
[2024-04-19 10:22] LABS: CREATININE 0.8 mg/dL (0.55-1.3)
[2024-04-19 13:58] VITALS: PULSE 89
== END 2024-04-19 15:00 | disposition home or self-care (01) | DRG 144 ==
LOC: JER 16:28 → JERBED 20:55 → OBSVTOIN 04-15 04:00 → J6S 04-15 08:00
PROVIDERS: ADMIT Internal Medicine; ATTEND Internal Medicine
DX: J20.9 Acute bronchitis, unspecified (principal); J06.9 Acute upper respiratory infection, unspecified; I10 Essential (primary) hypertension; E78.00 Pure hypercholesterolemia, unspecified; E11.9 Type 2 diabetes mellitus without complications; H40.9 Unspecified glaucoma; H26.9 Unspecified cataract; J98.11 Atelectasis; R50.9 Fever, unspecified; E66.9 Obesity, unspecified; Z68.31 Body mass index [BMI] 31.0-31.9, adult; M25.552 Pain in left hip; R68.89 Other general symptoms and signs; R09.02 Hypoxemia; R91.8 Other nonspecific abnormal finding of lung field
CPT/HCPCS: 0241U-QW; 36415; 71046-TC-FY; 71275-TC; 80048; 80053; 81003; 82962; 83036; 83735; 83880; 84100; 84484; 85025; 85027; 93005; 93010; 94010; 94640; 94761; 97116-GP; 99285-25; G0378; Q9967